=== PATIENT | male | born 1945 | race African-American/Black ===

== ENCOUNTER 2019-09-21 13:16 | Inpatient (IN) | payer OTHER, BC ==
[~2019-09-21] VITALS: Ht 180.3 cm; Wt 115.8 kg
--- NOTE | ~2019-09-21 | HC ---
[facility] [place] [address] CONSULTATION Name: BAUDILIO ASTORGA Room #: 362-P ADM IN M.R.#: [id number] Admission: 09/21/19 Attend Phys: James Trent MD Discharge: Date of : 47 Report #: [id number] THIS REPORT FOR: cc: Mohan Hernandez MD, Rene P. MD Khosla, Parveen K. MD ~ CC: James Hernandez DATE OF SERVICE: 09/21/2019 HISTORY OF PRESENT ILLNESS: This is a 73-year-old male patient who was evaluated by me multiple times. I talked to the nurses looking after this patient. I talked to the patient's and subsequently talked to her on the phone. This patient gives a history that he was somewhat confused and he had difficulty walking when he got up this morning. 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 His physician has also noticed on the left foot drop about 2 months ago and they were going to send him to a neurologist for rehabilitation for the brace on the other side. The patient was originally seen in the Emergency Room by Emergency Room physician and looks like they talked to the hospital and subsequently admitted the patient and then subsequent to that neurology consultation was requested. It looks like this patient woke up with these symptoms. So time of onset will be when he went to sleep last night. I am not certain what his symptoms are. Whether it is ataxia or weakness, is not clear, how much is new and how much is old, is not clear either. In any event, a CT scan of the head was done in the Emergency Room and that showed a question of right parietal lobe stroke. He denies any history of stroke in the past, but he has trouble with the foot as well as the back, which is longstanding. He does complain of dizziness. He is complaining of some facial weakness. He says he IS ALLERGIC TO CONTRAST, but his says he is not. He has some chronic hip plain. He has a knee replacement. He has a history of hypertension. That was his relevant 14-point review of systems. PAST MEDICAL HISTORY: Positive for significant back problem. He said he had shots in the back, but not recently, he said it was several months ago. FAMILY HISTORY: Noncontributory. SOCIAL HISTORY: He says he does not smoke or drink any alcohol. 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 PHYSICAL EXAMINATION: Indicate he is alert. He is responsive. He can follow simple commands. He does appear to be oriented. He said he had episode of confusion before that, which is resolved. He said he was sick about 4 days ago because some food he ate does not agree with him. He is right handed. His [facility] [address] [place] [address] CONSULTATION Name: BAUDILIO ASTORGA Room #: 362-P [facility] IN M.R.#: [id number] Admission: 09/21/19 Attend Phys: James Trent MD Discharge: Date of : 47 Report #: [id number] cranial nerve examinations appear noncontributory. His neuromuscular examination is positive for the fact that he does not move his foot on either side properly. It is not sure how long it is going on. He does have a position sense. His reflexes could not be elicited in the lower extremities, but he also has an artificial knee. Cardiorespiratory examinations appear unremarkable. His blood pressure is 136/70, pulse is ____, temperature is 97.7. LABORATORY DATA: Indicated normal white count. His sodium is trace low at 135. CT is as described above. IMPRESSION: I think this patient needs further workup to determine the etiology of the patient's symptoms. First, we need to see if he has a stroke and if he did have a stroke, whether that is enough to explain his symptoms. If stroke is excluded, then we need to consider the spine diagnosis because he has spine problems in the past. Stroke is higher on the list because a spine problem will not cause him speech difficulty and confusion, which he apparently have although history is not very good. I considered the possibility of Guillain-[place] syndrome because of progressive weakness of all 4 extremities and we will consider diagnosis if other causes are excluded. He said his symptoms are progressing so I got an MRI team. This is especially because he said he IS ALLERGIC TO CONTRAST, but the says he is not. We will see what the MRI shows. If MRI shows some stroke, which can explain his symptoms, nothing, will start evaluating that further and treating that. If MRI does not show any abnormality, then I think we need to workup his spine and as described above. About 50 minutes of time was spent taking care of this patient today and majority was spent counseling the patient's , patient as well as coordinating his care. We will follow this patient along with you. By: [id number] Lazaro Cabrera MD /nt
[~2019-09-21 13:16] MED LIST: ACCUPRIL PO; ADULT LOW DOSE81 MG PO; HYDROCODONE-AP1 EAC6 PO; KLOR-CON 1010 MEQ PO; LASIX 20 MG TAB20 MG PO; LIPITOR10 MG PO; NAPROSYN500 MG PO; NORCO 5-325 TA1 EACH PO; PERCOCET 5-3251 EACH PO; PROCARDIA XL90 MG PO; QUINU10 PD PO; TENORMIN PO; TRAMADOL 50 MG50 MG PO
[2019-09-21 13:26] VITALS: BP 128/79
[2019-09-21 14:20] LABS: ABSOLUTE NEUTROPHILS 9.1 thou/uL (1.4-8.2); BASOPHILS 0.3 % (0.0-2.0); EOSINOPHILS 0.1 % (0.0-3.0); HEMOGLOBIN 15.5 gm/dL (14.0-18.0); LYMPHOCYTES 6.1 % (24.0-44.0); MCH 31.4 pg (26.0-34.0); MCHC 34.4 g/dL (28.0-37.0); MCV 91.2 fL (80.0-100.0); MONOCYTES 8.9 % (1.0-8.0); PLATELET COUNT 166 thou/uL (150-400); POLYS 84.6 % (36.0-66.0); RBC 4.93 mil/uL (4.50-6.00); RDW 14.6 % (10.5-14.5); WBC 10.8 thou/uL (4.0-11.0)
[2019-09-21 14:40] LABS: ANION GAP 9 mmol/L (7-16); BUN 16 mg/dL (7-18); CALCIUM 9.7 mg/dL (8.5-10.1); CHLORIDE 103 mmol/L (98-107); CO2 23 mmol/L (21-32); CREATININE 1.1 mg/dL (0.7-1.3); GLUCOSE 158 mg/dL (74-106); SODIUM 135 mmol/L (136-145)
[2019-09-21 14:44] LABS: DIRECT BILIRUBIN 0.1 mg/dL (<0.1-0.2); SGOT 28 U/L (15-37); SGPT 27 U/L (30-65); TOTAL BILIRUBIN 0.5 mg/dL (0.2-1.0); TOTAL PROTEIN 7.5 g/dL (6.4-8.2); TROPONIN-I <0.06 ng/mL (<0.06)
[2019-09-21] MEDS ORDERED: NORVASC10 MG PO (16:14)
[2019-09-21] MEDS ORDERED: BYSTOLIC10 MG PO (16:15)
[2019-09-21] MEDS ORDERED: COQ-10100 MG PO (16:15)
[2019-09-21] MEDS ORDERED: SPIRONOLACTONE25 MG PO (16:15)
[2019-09-21] MEDS ORDERED: LIPITOR 20 MG T20 M1 PO (16:16)
[2019-09-21] MEDS ORDERED: VITAMIN C500 M2 PO (16:17)
[2019-09-21] MEDS ORDERED: FLAX OIL1000 MG PO (16:17)
[2019-09-21] MEDS ORDERED: MILK THISTLE175 M1 PO (16:17)
[2019-09-21] MEDS ORDERED: VITAMIN B-121000 MC2 PO (16:18)
[2019-09-21 17:46] LABS: URINE BILIRUBIN NEGATIVE (Negative); URINE BLOOD NEGATIVE (Negative); URINE CLARITY CLEAR; URINE COLOR YELLOW; URINE GLUCOSE-RANDOM* NEGATIVE (Negative); URINE KETONES TRACE (Negative); URINE LEUKOCYTES-REFLEX NEGATIVE (Negative); URINE NITRITE-REFLEX NEGATIVE (Negative); URINE PROTEIN (DIPSTICK) TRACE (Negative); URINE SPECIFIC GRAVITY >= 1.030 (1.005-1.035); URINE UROBILINOGEN 0.2 E.U./dl (0.2-1.0)
[2019-09-21 18:51] VITALS: BP 125/73
[2019-09-21 19:30] VITALS: BP 136/70
[2019-09-21 23:26] LABS: CHOLESTEROL 130 mg/dL (<200); HDL CHOLESTEROL 55 mg/dL (>40); LDL CHOLESTEROL 65 mg/dL (<100); TC:HDL 2.4 Ratio (Not establshd); TRIGLYCERIDE 50 mg/dL (<150); VLDL 10 mg/dL (<40)
[2019-09-21 23:33] LABS: SERUM ASSESSMENT Clear
[2019-09-21 23:37] VITALS: BP 135/87
--- NOTE | 2019-09-21 23:58 | NUR ---
PATIENT WAS A NEW ADMISSION TO THE UNIT THIS SHIFT. HE ARRIVED VIA CART FROM THE ER AND WAS TRANSFERRED INTO THE BED WITHOUT INCIDENT. PATIENT IS FULLY ALERT AND ORIENTED AND ABLE TO FULLY PARTICIPATE IN ADMISSION AND CALL APPROPRIATELY FOR NEEDS. PRELIMINARY NIH SHOWS PATIENT IN 5-7 RANGE PRIMARILY FOR LOWER LEG WEAKNESS. MRI CHANGED TO STAT PER NEURO DUE TO PATIENTS COMPLAINTS OF DIZZINESS AND TINGLING SENSATION IN FACE. NURSE TO COMPLETE ADMISSION PROCESS AND INITIATE PLAN OF CARE.
[2019-09-22] VITALS (19 sets, daily range): BP systolic 112–162; BP diastolic 47–100
--- NOTE | 2019-09-22 04:40 | NUR ---
CALL TO VOICING THE NEED TO KEEP THE PATIENT IN HIS CURRENT ROOM ICU STATUS. PHYSICIAN VERBALIZED UNDERSTANDING. PT TO BE ICU STATUS ON 3W. UPDATE COMMUNICATED TO RN CARING FOR THE PATIENT.
[2019-09-22 06:13] LABS: CHOLESTEROL 129 mg/dL (<200); HDL CHOLESTEROL 53 mg/dL (>40); LDL CHOLESTEROL 66 mg/dL (<100); TC:HDL 2.4 Ratio (Not establshd); TRIGLYCERIDE 50 mg/dL (<150); VLDL 10 mg/dL (<40)
[2019-09-22 06:31] LABS: SERUM ASSESSMENT Clear
--- NOTE | 2019-09-22 07:18 | NUR ---
ASSUMED PATIENT CARE AT APPROXIMATELY 1930. FULL ADMISSION COMPLETED. PATIENT COMPLAINED OF DIZZINESS AND FACIAL TINGLING WHICH WAS REPORTED TO PROVIDER. MRI'S OF HEAD AND CAROTID ARTERIES MADE STAT WITH FINDINGS RELAYED TO PROVIDER. PATIENT CHANGED TO ICU STATUS BUT UNABLE TO BE TRANSFERRED CURRENTLY DUE TO OVERFLOW. CONTINUOUS SATURATION MONITOR ORDERED WITH AUTOMATIC NIBP INITIATED. NIH REMAINS AROUND FOUR WITH PATIENT PRIMARILY SCORING FOR LOWER EXTREMITY WEAKNESS. DETAILED REPORT GIVEN TO ONCOMING RN. CONTINUE PLAN OF CARE.
--- NOTE | 2019-09-22 08:09 | EKG ---
[facility] [place] [address] ELECTROCARDIOGRAM REPORT Name: BAUDILIO ASTORGA Room #: 362-P ADM IN M.R.#: [id number] Admission: 09/22/19 Attend Phys: James Trent MD Discharge: Date of : 47 Report #: [id number] THIS REPORT FOR: cc: Mohan Hernandez MD, Rene P. 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: [facility] : 1945 Requested By: Carmina Collins Order Number: [id number] MD: Peter Lara Measurements Intervals [place] Rate: 70 P: [place]: QRS: 22 QRSD: 70 T: 46 QT: 558 QTc: 603 Interpretive Statements Atrial fibrillation Prolonged QT interval Compared to ECG 05/25/2010 07:22:15 Prolonged QT interval now present Atrial fibrillation has replaced sinus rhythm ST and T wave abnormalities less prominent Electronically Signed On 09-22-2019 8:08:44 CDT by Peter Lara [email or web address] <ELECTRONICALLY SIGNED> By: Peter Lara MD, [facility] 09/22/19 0808 [id number] [id number] Peter Lara MD, FAC /EPI
--- NOTE | 2019-09-22 08:30 | NUR ---
Pt ON ICU STATUS ON 3WEST. WILL AWAIT NEW PT ORDERS PRIOR TO INITIATING PT EVALUATION ONCE Pt MEDICALLY APPROPRIATE FOR PT.
--- NOTE | 2019-09-22 08:56 | NUR ---
RECEIVED OT EVALUATION ORDERS THEN PATIENT CHANGED TO ICU STATUS. PATIENT IS ON ICU STATUS WHILE ON 3W. WILL NEED NEW ORDERS WHEN MEDICALLY APPROPRIATE.
--- NOTE | 2019-09-22 10:54 | NUR ---
INITIAL ASSESSMENT: SW reviewed chart and spoke with nursing and attending physician. Pt was admitted from home due to new CVA. Neuro/neurosurgery consulted. Therapy ordered to evaluate pt when able to participated. [facility] consult ordered. SW spoke with pt via phone. Introduced role of SW. Pt is alert/orientated and able to answer questions appropriately. Pt reports he lives at home with his . Prior to admission, pt was using a walker. No hx of services or post-acute placement. Pt's PCP is Dr. Hernandez. Pt states his goal is to go back home upon discharge. Therapy/5N to eval pt and assist with recommendations for discharge. SW is following to assist as needed with discharge planning.
--- NOTE | 2019-09-22 11:00 | NUR ---
PT ALERT AND ORIENTED X4, NO COMPLAINTS OF PAIN, DOES HAVE SOME EXPRESSIVE DYSPHAGIA-NEEDS EXTRA TIME TO ANSWER QUESTIONS, ABLE TO ANSWER CORRECTLY GIVEN TIME. VITALS SIGNS STABLE, ON ROOM AIR. UPDATED, ALL QUESTIONS ANSWERED AND PLAN OF CARE REVIEWED WITH HER. DR SMITH REVIEWED ALL TESTING/MEDICATIONS/FUTURE TESTING WITH PT JUSTUS VIA TELEPHONE.
--- NOTE | 2019-09-22 11:47 | 2DMMODE ---
[facility] [place] [address] 2 D/M-MODE ECHOCARDIOGRAM Name: BAUDILIO ASTORGA Room #: 362-P ADM IN M.R.#: [id number] Admission: 09/22/19 Attend Phys: James Trent MD Discharge: Date of : 46 Report #: [id number] THIS REPORT FOR: cc: Mohan Hernandez MD, Rene P. MD Lammoglia, Francisco J. MD ~ APPROVED REPORT Study performed: 09/22/2019 11:01:41 EXAM: Comprehensive 2D, Doppler, and color-flow Echocardiogram Patient Location: Bedside Room #: 362 Status: routine BSA: 2.34 HR: 61 bpm BP: 137/82 mmHg Rhythm: Atrial Fibrillation Other Information Study Quality: Adequate Technically limited study due to inability to position patient. Indications Atrial Fibrillation Hx: [place], Stent, HTN, HLP. 2D Dimensions IVSd: 13.57 (7-11mm) LVOT Diam: 22.96 (18-24mm) LVDd: 43.60 mm PWd: 12.00 (7-11mm) LVDs: 33.21 (25-40mm) Aortic Root: 40.69 mm Volumes Left Atrial Volume (Systole) Single Plane 4CH: 101.28 mL Single Plane 2CH: 101.46 mL LA ESV Index: 47.00 mL/m2 Aortic Valve AoV Peak Mike.: 1.41 m/s AO Peak Gr.: 7.96 mmHg LVOT Max P.91 mmHg LVOT Max V: 1.11 m/s [facility] [address] [place] [address] 2 D/M-MODE ECHOCARDIOGRAM Name: BAUDILIO ASTORGA Room #: 362-P ADM IN M.R.#: [id number] Admission: 09/22/19 Attend Phys: Madelyn Mc Discharge: Date of : 47 Report #: [id number] DOMINGA Vmax: 3.25 cm2 Mitral Valve MV Decel. Time: 228.26 ms MV E Max Mike.: 1.12 m/s Pulmonary Valve PV Peak Mike.: 1.02 m/s PV Peak Gr.: 4.13 mmHg Tricuspid Valve TR Peak Mike.: 2.24 m/s TR Peak Gr.: 20.10 mmHg Left Ventricle The left ventricle is normal size. There is normal LV segmental wall motion. Mild concentric left ventricular hypertrophy. Left ventricular systolic function is borderline. LVEF is 55-60%. This study is not technically sufficient to allow evaluation of the LV diastolic function due to atrial fibrillation. Right Ventricle The right ventricle is normal size. The right ventricular systolic function is normal. Atria Left atrium is moderately to severely dilated. The right atrium size is normal. Aortic Valve Aortic valve leaflets are mildly thickened. No aortic regurgitation is present. There is no aortic valvular stenosis. Mitral Valve The mitral valve is normal in structure. There is no mitral valve regurgitation noted. No evidence of mitral valve stenosis. Tricuspid Valve The tricuspid valve is normal in structure. Trace tricuspid regurgitation. Estimated PAP is 20mmHg plus the right atrial pressure. Pulmonic Valve Pulmonic valve is not well visualized. Great Vessels Aortic root is dilated at 4.1cm. IVC is not well [facility] [address] [place] [address] 2 D/M-MODE ECHOCARDIOGRAM Name: BAUDILIO ASTORGA Room #: 362-P [facility].#: [id number] Admission: 09/22/19 Attend Phys: Madelyn Mc Discharge: Date of : 47 Report #: [id number] visualized. Pericardium There is no pericardial effusion. <Conclusion> The left ventricle is normal size. LVEF is 55-60%. Left atrium is moderately to severely dilated. Aortic valve leaflets are mildly thickened. The mitral valve is normal in structure. The tricuspid valve is normal in structure. Trace tricuspid regurgitation. Estimated PAP is 20mmHg plus the right atrial pressure. Pulmonic valve is not well visualized. Aortic root is dilated at 4.1cm. There is no pericardial effusion. <ELECTRONICALLY SIGNED> By: Aron Gutierres MD 09/22/19 1147 1147 1147 Aron Gutierres MD /INF
--- NOTE | 2019-09-22 12:54 | NUR ---
email marketing coordinator to see patient. this rn accessed patient in ER. pt appears a&ox3. reports vision in right eye has improved. speech has improved. denies any complaints at this time. plan of care reviewed with patient and . patient verbalizes understanding. stroke phamlet with current cholesterol levels given to patient along with risks factors. will continue to follow this pleasant patient.
--- NOTE | 2019-09-22 17:03 | EKG ---
[facility] [place] [address] ELECTROCARDIOGRAM REPORT Name: BAUDILIO ASTORGA Room #: 242-P ADM IN M.R.#: [id number] Admission: 09/22/19 Attend Phys: James Trent MD Discharge: Date of : 47 Report #: [id number] THIS REPORT FOR: cc: Mohan Hernandez MD, Rene P. MD Lundgren,Peter Rivera MD [facility] ~ THIS REPORT FOR: //name// [facility] Test Date: 2019-09-22 Test Time: 09:14:43 Pat Name: BAUDILIO ASTORGA Department: Room: [facility] Gender: M Belt Builder: JORGE : 1945 Requested By: Malorie Bustamante Order Number: [id number] MD: Peter Lara Measurements Intervals [place] Rate: 65 P: [place]: QRS: 29 QRSD: 99 T: 210 QT: 400 QTc: 416 Interpretive Statements Atrial fibrillation Anteroseptal infarct, old Nonspecific T abnormalities, lateral leads Baseline wander in lead(s) V1 Compared to ECG 09/21/2019 14:38:05 QT interval has shortened Electronically Signed On 09-22-2019 17:03:19 CDT by Peter Lara [email or web address] <ELECTRONICALLY SIGNED> By: Peter Lara MD, [facility] 09/22/19 1703 3 3 Peter Lara MD, FAC /EPI
--- NOTE | 2019-09-22 20:06 | NUR ---
SPOKE WITH (JUSTUS ASTORGA). PATIENT'S BROUGHT IN HOME CPAP MACHINE.
--- NOTE | 2019-09-22 23:26 | NUR ---
PATIENT PLACED ON HOME CPAP.
[2019-09-23] VITALS (23 sets, daily range): BP systolic 123–161; BP diastolic 69–112
[2019-09-23 02:06] LABS: GLYCOHEMOGLOBIN (HGB A1C) 5.3 % (4.8-5.6)
--- NOTE | 2019-09-23 06:22 | NUR ---
PATIENT ALERT AND ORIENTED X4, HEADACHE CONTROLLED WITH MEDICATION. NIH SCORE COMPLETED Q4H. PATIENT SCORED 3. A-FIB ON CHLORINATOR OPERATOR. ROOM AIR, HOME CPAP WORN OVER NIGHT. PATIENT RESTED WELL. PATIENT VOIDS PER URINAL. PLAN DISCUSSED WITH BOTH AND PATIENT. PATIENT PROGRESSING TOWARDS GOALS, NO SIGN OF ACUTE DISTRESS NOTED AT THIS TIME. WILL CONTINUE TO MONITOR.
[2019-09-23 06:32] LABS: CALCIUM 9.9 mg/dL (8.5-10.1)
--- NOTE | 2019-09-23 08:46 | NUR ---
PATIENT SEEN FOR REHAB CONSULT ON 09/22/19 BY DARIEN BENITEZ NP WITH DR. MIRANDA. PATIENT IS A CANDIDATE FOR ACUTE REHAB AND CAN BE ACCEPTED TO WHEN MEDICALLY STABLE.
--- NOTE | 2019-09-23 14:16 | NUR ---
Case discussed with the care team. Pt has been evaluated and [facility] acute rehab stay recommended. They will have a bed available and can accept the pt tomorrow if cleared by neuro. INSULATION WORKER INTERIOR SURFACE updated. Pt's spouse will be in this afternoon to visit and the [facility] liason can visit with them should they have questions. Pt's spouse brought in his home cpap yesterday. Will follow.
--- NOTE | 2019-09-23 15:23 | NUR ---
PT WORKED WITH PT X2, OT X1. NIH STROKE SCALE Q4, PT HIGHEST SCORE WAS A 3. EXPRESSIVE APHASIA IS IMPROVING. LOWER EXTREMITY DRIFT IS IMPROVING. VSS WNL. AT BEDSIDE. ADEQUATE UOP. 1 BM TODAY. HAS BEEN ACCEPTED TO [facility], AWAITING NEUROLOGY TO CLEAR PT. PT AND HAVE BEEN EDUCATED AND UPDATED ON POC. WILL CONTINUE TO MONITOR.
[2019-09-24] VITALS (12 sets, daily range): BP systolic 110–147; BP diastolic 61–88
--- NOTE | 2019-09-24 04:46 | NUR ---
PATIENT IS PROGRESSING SLOWLY IN HIS CARE PLAN. VITAL SIGNS STABLE WITH PATIENT HAVING NO COMPLAINTS OF PAIN OR NAUSEA. PATIENT IS FULLY ALERT AND ORIENTED AND ABLE TO CALL APPROPRIATELY FOR NEEDS AND PARTICIPATE IN CARE. NIH Q4 PER PROVIDER ORDER WITH PATIENT SCORING LOW PRIMARILY DUE TO LEG WEAKNESS AND SLIGHT APHASIA. PATIENT DOES HAVE CHRONIC LOWER LEG CONDITION WITH LEG WEAKNESS. UP WITH MAX ASSISTANCE MULTIPLE TIMES INCIDENT FREE. PATIENT IS CONSIDERED A HIGH FALL RISK WITH PRECAUTIONS FOLLOWED. RATE CONTROLLED ATRIAL FIBRILLATION THROUGHOUT SHIFT. SCD'S TOLERATED WELL OVERNIGHT. PATIENT DID TOLERATE CPAP OVERNIGHT. CONTINUE PLAN OF CARE.
--- NOTE | 2019-09-24 10:26 | NUR ---
[facility] can accept the pt today. Pt/ agreeable.
--- NOTE | 2019-09-24 13:48 | NUR ---
discussed during los, cont monitor on tele. when medical stable possible 09/25/2019 dc to acute 5 n rehab. bedside nurse to call report to [phone].
--- NOTE | 2019-09-24 16:15 | NUR ---
ASSUMED CARE PT SHIFT CHANGE. ASSESSMENTS CHARTED. MEDS GIVEN PER MAY. PT ALERT AND ORIENTED. VSS. DENIES PAIN. O2 SATS WNL ON ROOM AIR. PT REMAINS AFIB ON TELE RATES CONTROLLED. PT UP WITH PHYS THERAPY TOLERATING WELL. WEAKNESS REMAINS IN LEGS. NIH Q4 DOCUMENTED WITH SCORE OF 3. PT TX ORDERS TO CCU, REPORT GIVEN TO KELY MERA. PLAN IS FOR PT TO DC TO [facility] REHAB TOMORROW. PT LEFT UNIT WITH ALL BELONGINGS ACCOMPANIED BY .
[2019-09-25 00:10] VITALS: BP 130/65
--- NOTE | 2019-09-25 03:57 | NUR ---
PT IS ALERT AND ORIENTED X4. PT REASON FOR VISIT CVA. NIH SCORE WAS A 1. RIGHT DRIFT NOTED IN LEG. LUNGS ARE CLEAR. ABDOMEN IS ROUND. BOWEL SOUNDS PRESENT. WEARS HIS OWN BIPAP MACHINE. BUT REPORTS USED PEPERMENT OIL/. AND NOW HE CANT SEEM TO USE HIS OWN MACHINE CALLED RT. PLACED OUR EQUIPMENT ON THE PT. WILL HAVE DIAGNOSTIC TESTING DONE TODAY. DENIES ANY PAIN ISSUES. WILL CONTINUE TO ASSESS AND MONITOR PER NURSING AND NIH SCORES.
[2019-09-25 04:38] VITALS: BP 138/79
[2019-09-25 05:14] LABS: APTT 34.3 Seconds (24.5-32.8); INR 1.1
[2019-09-25 08:00] VITALS: BP 122/73
[2019-09-25] MEDS ORDERED: ELIQUIS5 MG PO (11:21)
[2019-09-25] MEDS ORDERED: HYDRALAZINE 2525 MG PO (11:21)
[2019-09-25 12:08] LABS: FOLIC ACID 36.6 ng/mL (8.6-58.9)
[2019-09-25 12:40] VITALS: BP 125/67
[2019-09-25 16:00] VITALS: BP 139/80
--- NOTE | 2019-09-25 18:39 | NUR ---
RECEIVED PT'S CARE AROUND 0715; PT. ON BED; RESTING WITH EYES CLOSED; EQUAL CHEST RISING NOTICED; AFIB ON THE MONITOR; DURING AM ASSESSMENT AOX4; NO C/O PAIN; AM MEDICATION GIVEN; REMAINED ABOUT FALL PREVENTIONS; ST. UNDERSTANDING; DURING DR. HOLDER ROUNDING REMAINED ABOUT CT ORDER; ORDERS ON PLACED; PER NEUROLOGIST OK FOR PT. TO D/C TO [facility], PER POC, & HAVE MRI NEXT WEEK; PT. TAKEN TO CT; RESULTS IN THE SYSTEM; HOSPITALIST & PNEUROLOGIST NOTIFIED; NO NEW ORDERS; AROUND 1200; JYOTI FROM REHAB REPORTED MEAT PUMPER THAT PT. & FAMILY REQUESTED TO BE TRANSFER TO [facility]; PHYSICIAN & SAFEKEEPING CLERK JOB RECRUITER NOTIFIED; INSTRUCTIONS RECEIVED; [facility]; [facility]PTING NEW [facility]; COMMUNICATED WITH ASHLEY; PT'S H&P, PT'S NOTES, PNEUROLOGIST NOTES & HOSPITALIST NOTES; AROUND 1500; RECEIVED CALL BACK FROM ASHLEY FROM [facility] REQUESTING HOSPITALIST D/C SUMMARY & REHAB NOTES; FAXED; AFTER 1600 RECEIVED CALL FROM ASHLEY PEREZ. "PATIENT NEEDS A COVID TEST AFTER MONITORING DURING WEEKEND WILL BE ADMITTED SATURDAY"; NOTIFIED OF D/C ORDERS; ST. "THAT IS WHAT THAT SAMPLE DRILLER STJohann"; HOSPITALIST, SAFEKEEPING CLERK JOB RECRUITER, PATIENT & NOTIFIED; PT. & ST. UNDERSTANDING & AGREED TO PT. TO BE TRANSFER ON SATURDAY AFTER SAFEKEEPING CLERK FOLLOW UP [facility]; ASSESSMENT CHARGED; FOLLOWING POC; WILL PASS ON REPORT;
[2019-09-25 19:07] LABS: IgA 279 mg/dL (61-437); IgG 1022 mg/dL (603-1613); IgM 184 mg/dL (15-143)
[2019-09-25 19:07] LABS: THYROID PEROXIDASE AB 11 IU/mL (0-34)
[2019-09-25 20:30] VITALS: BP 126/76
[2019-09-26 04:45] VITALS: BP 127/77
--- NOTE | 2019-09-26 07:41 | NUR ---
ASSUME CARE 1900. PT/VITALS STABLE. DENIES ANY PAIN. TOLERATES ACTIOVITY MODERATELY. POOR STREGNTH NOTED WITH PLANTAR FLEXION AND DORSIFLEXION. ASSESSMENT CHARTED. PROGRESSING WELL WITH POC. PLAN IS POSSBILE DISCHARGE TO REHAB TODAY. NO DISTRESS NOTED. WILL FOLLOW WITH POC
[2019-09-26 08:01] LABS: HEMATOCRIT 46.3 % (42.0-52.0); HEMOGLOBIN 15.4 gm/dL (14.0-18.0); MCH 31.2 pg (26.0-34.0); MCHC 33.2 g/dL (28.0-37.0); MCV 94.1 fL (80.0-100.0); RBC 4.92 mil/uL (4.50-6.00); RDW 14.8 % (10.5-14.5); WBC 8.3 thou/uL (4.0-11.0)
[2019-09-26 08:10] LABS: CALCIUM 9.4 mg/dL (8.5-10.1); CREATININE 0.8 mg/dL (0.7-1.3); POTASSIUM 4.5 mmol/L (3.5-5.1)
[2019-09-26 09:00] VITALS: BP 149/74
--- NOTE | 2019-09-26 11:38 | HC ---
[facility] [place] [address] CONSULTATION Name: BAUDILIO ASTORGA Room #: 218-P [facility] IN M.R.#: [id number] Admission: 09/22/19 Attend Phys: James Trent MD Discharge: Date of : 47 Report #: [id number] THIS REPORT FOR: cc: Mohan Hernandez MD, Rene P. MD Al-Mubaslat, Ahmad MD ~ CC: James Hernandez DATE OF SERVICE: 09/25/2019 ENDOCRINE CONSULTATION CONSULTING PHYSICIAN: Dr. Trent. REASON FOR CONSULTATION: Hyperthyroidism. HISTORY OF PRESENT ILLNESS: This is a 73-year-old male patient whose medical background is significant for the issues of hypertension and hyperlipidemia. The patient presented to [facility] with complaints of confusion and mental status changes and slurred speech. 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 During his hospital stay, the patient was worked up for thyroid dysfunction, was found to have evidence of hyperthyroidism. When discussed with the patient, he reported no knowledge of a prior personal issue with a thyroid dysfunction or having ever been treated for thyroid disease in the past. He vaguely recalls that a sister of his had thyroid issues, but could not elaborate on the nature of these issues. The patient has not noted significant body weight changes, tremors, palpitations, heat intolerance or sweating. There have been no skin or hair changes. The patient does appreciate; however, a bit of generalized anxiety, which had interfered with the quality of his sleep. He attributes these changes to being anxious about the COVID pandemic. The patient does not appreciate specific difficulties pertaining to neck fullness, pain or compressive symptoms. REVIEW OF SYSTEMS: CONSTITUTIONAL: Slight issues with fatigue, tiredness, but not fever or chills or body weight changes. HEENT: Negative for sore throat, sinus pain, ear drainage. PULMONARY: Occasional shortness of breath, but no cough or hemoptysis. CARDIAC: Negative for palpitations, chest pain, syncope or presyncope. GASTROINTESTINAL: Occasional abdominal discomfort, distention, nausea, but no vomiting or changes in bowel movement frequency. [address] [address] CONSULTATION Name: BAUDILIO ASTORGA Room #: 218-P [facility] IN M.R.#: [id number] Admission: 09/22/19 Attend Phys: James Trent MD Discharge: Date of : 47 Report #: [id number] SKIN: Negative for rash, ulceration or discoloration. Otherwise, his review of systems is noncontributory other than those mentioned in HPI. PAST MEDICAL HISTORY: Noted for: 1. Hypertension. 2. Hyperlipidemia. 3. Prostate cancer. 4. Recently found atrial fibrillation. 5. Cerebellar infarct as noted above. 6. Possible hyperthyroidism. OUTPATIENT MEDICATIONS: Include amlodipine 10 mg daily, spironolactone 25 mg b.i.d., Bystolic 10 mg daily, CoQ10 100 mg daily, Lipitor 20 mg at bedtime, vitamin C 500 mg daily, vitamin B12 500 mcg daily, KCl 20 mEq daily, aspirin daily, furosemide 10 mg daily. ALLERGIES: CIPROFLOXACIN. FAMILY HISTORY: Noncontributory. SOCIAL HISTORY: The patient denies use of tobacco, alcohol or illicit drugs. He lives with his . He has one daughter. 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 PHYSICAL EXAMINATION: GENERAL: Pleasant -Maltese male patient who is not in apparent pain or distress. VITAL SIGNS: Blood pressure is 122/73 mmHg, heart rate is 63 beats per minute, respiration 18 per minute, temperature 36.9 degrees Celsius. CONSTITUTIONAL: The patient appears comfortable, not in apparent pain or distress. HEENT: Anicteric sclerae. Intact extraocular motions. NECK: Supple, without JVD, carotid bruits. Thyroid tissue is appreciated, smooth in texture, nontender. CHEST: Noted for moderate air entry bilaterally with a few rales, but not wheezes or crackles. HEART: Regular rate and rhythm, no murmurs, no gallops. ABDOMEN: Soft, lax. No guarding. Active bowel sounds. EXTREMITIES: Lower extremity exam, trace ankle edema. No skin breaks or ulcerations. NEUROLOGIC: Awake, alert and oriented to time, place and person. The remainder of examination is nonfocal. PSYCHIATRIC: Pleasant, interactive. Normal mood and affect. LABORATORY DATA: Sodium 139, potassium 4.0, chloride 105, CO2 of 23, anion gap 11, BUN 18, creatinine 1.0, AST 28, total bilirubin 0.5, calcium 9.9, magnesium 1.9, alkaline phosphatase 67, ALT 27, total protein 7.5, albumin 3.0. EGFR 89. [facility] [address] [place] [address] CONSULTATION Name: BAUDILIO ASTORGA Room #: 218-P ADM IN M.R.#: [id number] Admission: 09/22/19 Attend Phys: James Trent MD Discharge: Date of : 47 Report #: [id number] Lactic acid 1.7. Troponin is negative. Total cholesterol 129, triglycerides 50, HDL 53, LDL 66. Free T4 1.7 upper limit of normal is 1.46. INR 1.1. White blood count 10.8, hemoglobin 15.5, hematocrit 45.0, platelets 166. TSH undetectable. Folate 36.6. Vitamin B12 of 1718. Hemoglobin A1c 5.3%. RADIOLOGY DATA: His radiology data were most remarkable for a CT scan of the head that revealed evolving right cerebellar infarct with slight decreased attenuation as well as an additional infarct involving the anterior inferior left cerebellum, which appears more conceptious than the previous study without underlying tremors artifact. There was evidence of a right posterior parietal occipital watershed region suggesting old watershed infarcts. There were scattered low attenuation also is noted along the posterior left watershed area similar to the previous study. ASSESSMENT AND PLAN: 1. Hyperthyroidism. The patient's thyroid function studies certainly imply a state of hyperthyroidism. The patient does not offer a clinical outlook of the same. The patient was counseled at length about the pathogenesis of hyperthyroidism, its implications, its etiologies. I pointed out the necessity of maintaining a normalized thyroid levels to avoid associated complications. It is interesting that the patient was found to have a new-onset atrial fibrillation in the same setting that he was found to have hyperthyroidism as the two could be related. Given the patient's recent cerebrovascular events and atrial fibrillation, I would have a low threshold to proactively treat with methimazole, but I would like to also obtain serology studies including TPO antibodies and thyroid-stimulating immunoglobulins. If this does not prove to be associated with acute or subacute thyroiditis, then I will proceed with methimazole therapy. 1. Hypertension. The patient's level of blood pressure control is adequate, continue with the current regimen. 2. Hyperlipidemia. The patient is currently maintained on atorvastatin therapy and tolerates it well, he is to continue the same. I have reviewed the patient's clinical care notes, laboratory data, radiology data, as well as other pertinent clinical information for over 35 minutes in addition to my encounter time with the patient. I certainly appreciate this consultation by Dr. Trent. <ELECTRONICALLY SIGNED> By: Orlin Ray MD 09/26/19 [id number] Orlin Ray MD /nt
[2019-09-26] MEDS ORDERED: METHIMAZOLE10 MG PO (12:42)
[2019-09-26 16:40] VITALS: BP 131/69
[2019-09-26 20:45] VITALS: BP 118/66; BP 132/66
[2019-09-26 23:40] VITALS: BP 153/75
--- NOTE | 2019-09-27 05:17 | NUR ---
PT TRANSFRERRED FROM [facility] @2340 A&OX4 UP WITH ASSISTX1 WITH A WALKER TO THE BATHROOM. ORIENTED PT TO THE ROOM. PT HAD A BM THIS SHIFT. WEARS CPAP @[facility]. DENIES PAIN/V/V. FOOT DROP NOTED WITH AMBULATION. SCD'S INTACT. FALL PREC IN PLACE AND WILL CONT WITH POC TILL EOS.
[2019-09-27 08:00] VITALS: BP 149/73
[2019-09-27 15:57] VITALS: BP 134/85
--- NOTE | 2019-09-27 19:48 | NUR ---
PT A&OX4. IV INTACT IN R FA. DENIES ANY PAIN. PLANS ARE FOR PT TO GO TO [facility]. CT OF HEAD WAS COMPLETED. CALL LIGHT W/I REACH BED ALARM ON.
[2019-09-27 22:12] VITALS: BP 135/77
--- NOTE | 2019-09-28 04:04 | NUR ---
ASSESSMENT COMPLETED. PT ALERT AND ORIENTED.DENIES PAIN. SWALLOWS MEDS OKAY. PT ABLE TO WALK TO THER BATHROOM WITH SBA -USING ROLLER WALKER.USING CPAP AT [facility]. NO SIGNS OF DISTRESS. PLAN FOR D/C TO REHAB TOMORROW.
[2019-09-28 05:08] VITALS: BP 137/97
[2019-09-28 07:26] VITALS: BP 132/93
--- NOTE | 2019-09-28 08:16 | NUR ---
PATIENT WAS TO ADMIT TO ACUTE REHAB ON 09/25/19 BUT CALL WAS RECEIED FROM THAT PATIENT/ WANTED TO GO TO [facility] INSTEAD OF [facility]. IRISH MOSS BLEACHER CONTACTED NURSE AND INFORMED NURSE OF PATIENT'S DECISION AND ASKED TO CONTACT NETWORK ENGINEER [employer] SPECIALIST TO SEND REFERAL TO [facility].
[2019-09-28 08:56] VITALS: BP 132/93
--- NOTE | 2019-09-28 09:07 | NUR ---
DR ABREU ORDERED MRI OF UPPER BACK PATIENT REFUSED HAD MRI OF LOWER MRI 09/24/19
--- NOTE | 2019-09-28 12:09 | NUR ---
PT HAD BEEN ACCEPTED TO [facility]. THEY ARE ABLE TO TAKE PT THIS DAY. CARE TEAM INDICATED PT IS MEDICALLY STABLE TO [place]. CHART COPY ORDERED. ORDERS FAXED. [facility] TRANSPORT ARRANGED FOR 1300. CM NOTIFIED PT AND SPOUSE THEY ARE AWARE AND AGREEABLE. NURSE GIVEN CONTACT FOR REPORT SHE;S TO CALL NURSE OSVALDO ROOM 3006 . NO OTHER CM INTERVENTION INDICATED. CASE CLOSED.
--- NOTE | 2019-09-28 13:20 | NUR ---
DISCHARGE PAPERS GONE OVER SIGNED AND COPY IN CHART. IV ACSESS DCD. REPORT TO OSVALDO MERA AT [facility]. ALL BELONGINGS PACKED AND SENT WITH PATIENT. TRANSPORTATION HERE TO BUSINESS INSTRUCTOR PATIENT.
[2019-09-28 15:07] LABS: THYROID STIMULATING IG < 0.10 IU/L (0.00-0.55)
[2019-09-29 17:06] LABS: ANA INTERPRETATION Negative (Negative)
== END 2019-09-28 13:25 | DRG 64 ==
LOC: ER 13:16 → 3W 18:22 → EROBS 18:22 → 3W 18:22 → ICU 09-22 05:35 → 2N 09-24 15:58 → 4S 09-26 23:56
PROVIDERS: Emergency Medicine; Internal Medicine; Nurse Practitioner; Psychiatry & Neurology Neurology; Psychiatry & Neurology Neuromuscular Medicine; ADMIT Hospitalist; ATTEND Hospitalist
PROC: 5A09357 Assistance with Respiratory Ventilation, Less than 24 Consecutive Hours, Continuous Positive Airway Pressure (ICD-10-PCS; principal; 2019-09-25)
DX: I63.541 Cerebral infarction due to unspecified occlusion or stenosis of right cerebellar artery (principal); G93.41 Metabolic encephalopathy; M48.061 Spinal stenosis, lumbar region without neurogenic claudication; I48.91 Unspecified atrial fibrillation; E78.5 Hyperlipidemia, unspecified; I10 Essential (primary) hypertension; R27.0 Ataxia, unspecified; E05.90 Thyrotoxicosis, unspecified without thyrotoxic crisis or storm; I25.10 Atherosclerotic heart disease of native coronary artery without angina pectoris; M21.372 Foot drop, left foot; Z96.652 Presence of left artificial knee joint; M21.371 Foot drop, right foot; Z86.73 Personal history of transient ischemic attack (TIA), and cerebral infarction without residual deficits; Z98.1 Arthrodesis status; Z79.82 Long term (current) use of aspirin; Z79.891 Long term (current) use of opiate analgesic; Z88.8 Allergy status to other drugs, medicaments and biological substances; Z79.899 Other long term (current) drug therapy; Z84.89 Family history of other specified conditions; Z79.01 Long term (current) use of anticoagulants; Z03.818 Encounter for observation for suspected exposure to other biological agents ruled out; R47.81 Slurred speech
CPT/HCPCS: 10078; 10081; 10102; 10203; 10879